=== PATIENT | female | born 1955 | race Caucasian/White ===

== ENCOUNTER → 2016-10-31 | Outpatient (CLI) | payer OTHER ==
--- NOTE | 2016-11-01 13:34 | WWHP ---
DATE OF SERVICE: 10/31/2016 CHIEF COMPLAINT: The patient is here for her routine gynecologic exam. HPI: This is a 61-year-old G1, P1 with an LMP of approximately 2001. She previously saw Dr. Melvin for her gynecologic care. It has been about 2-1/2 years since her last pelvic exam. It has been a little more than one year since her last mammogram. She is without gynecologic complaints and denies any postmenopausal bleeding. PAST MEDICAL HISTORY: Chronic hypertension, hypothyroidism and episodes of vertigo. MEDICATIONS: 1. Lotrel 5/20 mg daily. 2. Thyroid medication 0.05 mg 1/2 tablet daily. 3. Toprol XL 12.5 mg daily. 4. Vitamin E supplement one daily. ALLERGIES: SULFA, which caused a rash. PAST SURGICAL HISTORY: Laparoscopy with laparotomy and right salpingo- oophorectomy, left ovarian cystectomy, appendectomy and lysis of adhesions done in 1988, multiple breast surgeries including a biopsy and cyst aspiration years ago and these were benign, knee surgery in 2005, colonoscopy in 2014 and this was her third one. PAST OB HISTORY: One vaginal delivery. PAST [employer] HISTORY: She does have a history of endometriosis in the past. She has no history of STDs. SOCIAL HISTORY: She denies tobacco, alcohol and drug use. 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 FAMILY HISTORY: Sister had lung and ovarian cancer and they were uncertain of which was the primary. This sister also had Crohn's disease and at age 42. She had a different sister who is her twin who had skin cancer and brother had amyloidosis. REVIEW OF SYSTEMS: She has lost about 30 pounds over the last 2 to 3 years and this has been done through [employer]. She denies respiratory, cardiac or GI problems. PHYSICAL EXAM: Blood pressure is 136/78. Height 5 feet 5 inches. Weight 142 pounds. Temperature 97.6. Pulse is 71. This is a well-developed, well-nourished white female who is alert and oriented x3 in no acute distress. HEENT is within normal limits. NECK: Supple without mass or thyromegaly. CHEST AND LUNGS: Clear to auscultation. HEART: Regular rate and rhythm. Breasts are without mass or discharge. Axillary exam is negative for adenopathy. BACK: Negative for CVA tenderness. ABDOMEN: Soft, nontender without palpable masses. PELVIC EXAM: External genitalia reveals mild to moderate atrophy without lesions. Cervix and vagina reveals mild to moderate atrophy without lesions. There is no evidence of prolapse. The uterus is mid position, nongravid size and nontender. There are no palpable adnexal masses or tenderness. Rectovaginal exam is negative for mass or tenderness and is negative for occult blood. EXTREMITIES: Nontender. IMPRESSION: 1. A 61-year-old menopausal female with normal gynecologic exam. 2. History of right salpingo-oophorectomy for benign reasons. PLAN: 1. Pap smear was performed. 2. Self-breast examination was discussed. 3. Mammogram is due, but the patient would like to do this at [facility] and order slip was given to the patient for this. 4. Osteoporosis prevention was discussed. She states she had a normal bone density test about in 2010. We will plan on repeating this next year. 5. She will return in one year. JENNIFER
== END | disposition home or self-care (01) ==
LOC: WWCWWP 15:09
PROVIDERS: ATTEND Obstetrics & Gynecology
DX: Z01.419 Encounter for gynecological examination (general) (routine) without abnormal findings (principal)

== ENCOUNTER → 2020-01-15 | Outpatient (CLI) | payer MEDICARE ==
[2020-01-15 11:08] VITALS: BP 144/80; PULSE 57; RESP 18; TEMP 98.1
--- NOTE | 2020-01-15 11:42 | P.GSHP ---
History of Present Illness H&P Date: 01/15/20 Chief Complaint: Fibrocystic breast changes Alize is a 64-year-old white female who presents for breast evaluation seen in consultation from Dr. Andrew. She had a bilateral mammogram performed on 220 820. No mammographic evidence for malignancy was noted. Annual bilateral breast mammogram was recommended. Recently on physician examination question of some fullness of the left breast and the patient had undergone a disc 620 a left breast diagnostic mammogram. Again this did not show any specific lesions of concern and an ultrasound was performed. The ultrasound was felt to be probably benign BIRADS 3. Question of some minimal shadowing at the 12 o'clock position 5 cm from the nipple was noted. Corresponding mammographic abnormality was not noted. Clinical management of any palpable abnormality would be recommended and biopsy recommended if something seen there clinically. Consideration of MRI of the breast was also recommended. Alize states she has dense breasts but does not show any specific lumps masses or nodules in her breasts. She is not complaining of any nipple discharge or skin changes. She has had a right breast open biopsy proximally 15 years ago which was benign. She is had needle biopsy as well by radiology which was also on the right breast and benign. She is had a cyst aspirated from right breast in the past. Patient has had 20 pound weight loss in past several years. Caffeine: diet coke several 16 oz bottles/day Nicotine: Negative Theophylline: Negative Family history: sister: from lung and ovarian cancer at 40 brother: at 50 from amyloidosis identical twin sister: T cell lymphoma of the skin Hormonal History: menarche: 10 , breast fed: yes, age at first :30 menopause: 54, right tube and ovary removed secondary to endometriosis BCP: 2 years; took danocrine hormones: danocrine Surgical history: 1. Right tube and ovary removed 2. Right knee surgery 3. Right breast biopsy Medical history: hypothyroid high cholesterol HTN Osteoporosis Social History: Imaging: Negative Alcohol: Negative Drugs: Negative - Constitutional Comment: history of vertigo Constitutional: Denies chills, Denies fever - EENT Eyes: denies blurred vision, denies pain Ears: deny: decreased hearing, tinnitus Ears, nose, mouth and throat: Denies headache, Denies sore throat - Breasts Breasts: bilateral: as per HPI - Cardiovascular Cardiovascular: Denies chest pain, Denies shortness of breath - Respiratory Respiratory: Denies cough, Denies 7 - Gastrointestinal Gastrointestinal: Denies abdominal pain, Denies diarrhea, Denies nausea, Denies vomiting - Genitourinary (Female) Genitourinary: Denies dysuria, Denies hematuria - Menstruation Menstruation: Reports postmenopausal - Musculoskeletal Musculoskeletal: Denies myalgias - Integumentary Integumentary: Denies pruritus, Denies rash - Neurological Neurological: Denies numbness, Denies weakness - Psychiatric Psychiatric: Denies anxiety, Denies depression - Endocrine Comment: Hypothyroid - Hematologic/Lymphatic Comment: none - Allergic/Immunologic Allergic/Immunologic: Reports as per HPI Past Medical History History of Any Multi-Drug Resistant Organisms: None Reported Smoking Status: Never smoker Medications and Allergies Home Medications Medication Instructions Recorded Confirmed Type Ascorbic Acid [Vitamin C] 500 mg PO DAILY 01/15/20 01/15/20 History Calcium Carbonate/Vitamin D3 1 each PO DAILY 01/15/20 01/15/20 History [Calcium 250-D Tablet] Levothyroxine Sodium [Synthroid] 25 mcg PO DAILY 01/15/20 01/15/20 History Metoprolol Succinate (ER) [Toprol 25 mg PO HS 01/15/20 01/15/20 History Xl] Pravastatin Sodium [Pravachol] 20 mg PO HS 01/15/20 01/15/20 History amLODIPine BESYLATE/BENAZEPRIL 1 cap PO DAILY 01/15/20 01/15/20 History [Lotrel 5-20 MG] Allergies Allergy/AdvReac Type Severity Reaction Status Date / Time Sulfa (Sulfonamide AdvReac Rash/Hives Unverified 01/15/20 11:02 Antibiotics) Surgical - Exam Vital Signs Temp Pulse Resp BP Pulse Ox 98.1 F 57 L 18 144/80 99 01/15/20 11:05 01/15/20 11:05 01/15/20 11:05 01/15/20 11:05 01/15/20 11:05 BMI 24.1 - General well developed, well nourished, no distress - Eyes normal ocular movement - ENT no hearing loss, no congestion - Neck no masses, trachea midline - Respiratory normal respiratory effort, clear to auscultation - Cardiovascular Rhythm: regular Heart Sounds: normal: S1, S2 - Abdomen Abdomen: soft, non tender, no guarding, no rigid, no rebound - Integumentary normal turgor - Neurologic no disoriented, no combative - Musculoskeletal normal gait, normal posture - Psychiatric oriented to time, oriented to person, oriented to place, speech is normal, memory intact Breast exam: BRA: 34C inspection: bilateral grade 2/3 ptosis palpation: right breast: Fibrocystic changes, multiple positional exam no discrete dominant masses or nodules of concern Right axilla: No adenopathy of concern Left breast: Fibrocystic changes, multiple positional exam no discrete dominant masses or nodules of concern, left breast is larger than the right breast patient has had recent 20 pound weight loss and has noted changes in the breast Left axilla: No adenopathy of concern Results Mammogram and ultrasound results reviewed Assessment and Plan Assessment: Impression: 1. Asymmetry of the breast 2. Fibrocystic breast changes 3. Questionable fullness in the left breast which is most likely fibrocystic change and more noticeable secondary to the increased size of her left breast over the right breast 4. hypothyroidism 5. Hypertension Plan: 1. MRI of both breasts 2. We will discuss the role of caffeine in fibrocystic breast changes and she is going to consider by step modification to decrease this 3. Follow-up after MRI of both breasts Cc: Dr. Guido encounter 30 minutes, > 50% of time in planning and counselling
== END | disposition home or self-care (01) ==
LOC: WWCWWP 10:46
PROVIDERS: ATTEND Surgery
DX: Z53.9 Procedure and treatment not carried out, unspecified reason (principal)

== ENCOUNTER → 2020-02-07 | Outpatient (CLI) | payer MEDICARE ==
--- NOTE | 2020-02-10 07:59 | BMR ---
EXAMINATION TYPE: MR breast BILAT wo/w con DATE OF EXAM: 02/07/2020 COMPARISON: Outside Bilateral breast mammogram May 31, 2019 BI-RADS 2. Diagnostic outside left br east mammogram November 27, 2019 BI-RADS 2. Diagnostic completed left breast outside ultrasound November BI-RADS 3. HISTORY: Left side abnormality at 12 o'clock, abnormal ultrasound. Palpable abnormality left breast. CONTRAST: Multiplanar, multisequence images of the breasts were acquired utilizing 6.5 mL intravenous Gadavist gadolinium contrast. TECHNIQUE: A series of fat and water weighted images in the long and short axis views of both breasts are obtained in conjunction with dynamic contrast MRI with subtraction technique. Three-dimensional and additional postprocessing imaging is created on independent workstation and reviewed during [facility] interpretation of this study. FINDINGS: Heterogeneously dense fibroglandular tissue throughout both breasts is redemonstrated. T2 a nd STIR weighted images show lobulated thin-walled 8 mm cyst in the lower inner quadrant anterior to middle depth right breast image 15 series 301. There are some prominent but felt benign-appearing rig ht axillary lymph nodes. There are asymmetrically slightly larger left axillary lymph node. No defini tive greater than 1 cm adenopathy on short axis is identified . Postcontrast imaging shows minimal ba ckground enhancement. Delayed dynamic postcontrast imaging shows no suspicious enhancing intramammary adenopathy. With regards to the right breast. No suspicious skin thickening is seen. No pathologic enhancement or enhancing mass is noted. The chest wall is intact. With regards to the left breast. No suspicious enhancement is identified. No abnormal skin thickening . The chest wall is intact. No concerning mass with particular attention to the 12:00 region an area of ultrasound concern. IMPRESSION: No MRI evidence for invasive malignancy in either breast. BI-RADS 2 benign findings right breast BI-RADS 2 benign findings left breast Recommendation: Patient due for bilateral breast mammogram May 2020 to be back on annual schedul e.
== END | disposition home or self-care (01) ==
LOC: RADMRIMAIN 10:09
PROVIDERS: ATTEND Surgery
DX: R92.8 Other abnormal and inconclusive findings on diagnostic imaging of breast (principal)
CPT/HCPCS: C8937; C8908; A9585; 77049

== ENCOUNTER → 2021-12-06 | Outpatient (CLI) | payer MEDICARE | END | disposition home or self-care (01) | LOC: LABPAT 08:36 | PROVIDERS: ATTEND Orthopaedic Surgery | DX: Z01.812 Encounter for preprocedural laboratory examination (principal); Z22.322 Carrier or suspected carrier of Methicillin resistant Staphylococcus aureus; M16.11 Unilateral primary osteoarthritis, right hip | CPT/HCPCS: 87070 ==

== ENCOUNTER 2024-04-04 11:29 | Day surgery (SDC) | payer MEDICARE ==
[2024-04-01 15:39] VITALS: BMI 23.6
[~2024-04-04 11:29] MED LIST: LIDOCAINE 1% (10MG/ML) FOR IV START INTRADERMA PRN
[2024-04-04] MEDS: IV FLUID CONTINUATION 1,000 ML IV ONE (13:24)
[2024-04-04 13:26] VITALS: RESP 16; TEMP 97.1
[2024-04-04] MEDS: LACTATED RINGERS 1,000 ML IV SCH (13:28)
[2024-04-04] MEDS ORDERED: LIDOCAINE 1% INJ 10MG/ML (20 ML MDV) ONE (14:34)
[2024-04-04] MEDS ORDERED: PROPOFOL 10 MG/ML 20 ML VIAL IV ONE (14:34)
--- NOTE | 2024-04-04 14:55 | P.PCN ---
Date of Procedure: 04/04/24 Procedure(s) Performed: BRIEF HISTORY: Patient is a 68-year-old pleasant white female scheduled for an elective colonoscopy as a part of evaluation of change in bowel habits for the last 6 months duration. PROCEDURE PERFORMED: Colonoscopy. PREOPERATIVE DIAGNOSIS: Change in bowel habits. IV sedation per Anesthesia. PROCEDURE: After informed consent was obtained, the patient, was brought into the endoscopy unit. IV sedation was administered by Anesthesia under continuous monitoring. Digital rectal examination was normal. Initially the Olympus CF-160 flexible video colonoscope was then inserted in the rectum, gradually advanced into the cecum without any difficulty. Careful examination was performed as the scope was gradually being withdrawn. Ileocecal valve and the appendiceal orifice were visualized and appeared normal. Prep was excellent. Mucosa of the cecum, ascending colon, transverse colon, descending colon, sigmoid colon, and rectum appeared normal. Moderate sigmoid diverticulosis. Retroflexion was performed in the rectum and no lesions were seen. The patient tolerated the procedure well. IMPRESSION: Normal-appearing colon from rectum to cecum with no evidence of colorectal neoplasia. Moderate sigmoid diverticulosis. RECOMMENDATIONS: Findings of this examination were discussed with the patient as well as her family. She was advised to be on a high-fiber diet and take fiber supplements on a regular basis. Recommended repeat screening colonoscopy in 10 years..
[2024-04-04 15:13] VITALS: BP 118/73; PULSE 76
== END 2024-04-04 15:48 | disposition home or self-care (01) ==
LOC: ORWHC2ENDO 11:29
PROVIDERS: ATTEND Internal Medicine Gastroenterology
DX: K57.30 Diverticulosis of large intestine without perforation or abscess without bleeding (principal); I10 Essential (primary) hypertension; E78.5 Hyperlipidemia, unspecified; E07.9 Disorder of thyroid, unspecified; M19.90 Unspecified osteoarthritis, unspecified site; Z88.2 Allergy status to sulfonamides; Z79.890 Hormone replacement therapy; Z79.1 Long term (current) use of non-steroidal anti-inflammatories (NSAID); Z79.899 Other long term (current) drug therapy
CPT/HCPCS: 45378; J2003; J2704

== ENCOUNTER → 2024-08-19 | Outpatient (CLI) | payer MEDICARE ==
--- NOTE | 2024-08-19 08:44 | BD ---
EXAMINATION TYPE: Axial Bone Density DATE OF EXAM: 08/19/2024 CLINICAL HISTORY: 69 years old Female. ICD-10 CODE: R92.30 DENSE BREAST , Additional History: Height: 64.2 Weight: 142 FRAX RISK QUESTIONS: History of Fracture in Adulthood: yes Secondary Osteoporosis: yes 3. Menopause before 45: yes, at 42 5. Chronic liver disease: cystic liver, enzymes fluxuate RISK FACTORS HISTORY OF: osteoporosis, hx of rt patellar fx with removal, Surgery to right hip, total rt hip replacement 3 yrs ago MEDICATIONS: bp meds, vit d and calcium, Thyroid Medications: yes, synthroid product for about 8 yrs Osteoporosis Medications: yes, fosamax x4 yrs, EXAM MEASUREMENTS: Bone mineral densitometry was performed using the [employer]ke[employer] System. Bone mineral density as measured about the Lumbar spine is: ----- L1-L4(G/cm2): 0.859 T Score Values are as follows: ----- L1: -3.3 ----- L2: -3.9 ----- L3: -2.3 ----- L4: -1.8 ----- L1-L4: -2.7 Z Score Values are as follows: ----- L1: -1.6 ----- L2: -2.2 ----- L3: -0.6 ----- L4: -0.1 ----- L1-L4: -1.0 Bone mineral density is the first study for her at [facility]. Bone mineral density about the L hip (g/cm2): 0.786 T Score values are as follows: -----L Neck: -1.8 -----L Total: -1.8 Z Score values are as follows: -----L Neck: -0.1 -----L Total: -0.2 Bone mineral density is the first DEXXA at [facility]. FRAX%s: The graph provided illustrates a 17.8% chance for a major osteoporotic fx and a 3.3% chance f or the hips probability for fx in 10 years time. IMPRESSION: Osteoporosis (T Score less than -2.5). There is increased fracture risk and therapy is usually indicated based on age. Re-Screen 1-2 years. NOTE: T-SCORE=SD OF THE YOUNG ADULT MEAN. [facility], , 08/19/2024 8:42 AM
--- NOTE | 2024-08-19 09:25 | USB ---
Reason for Exam: Clinical finding. Patient History: Menarche at age 11. First Full-Term at age 28. Late child-bearing (after 28). Right ovary removed at age 30. Postmenopausal. 1999, US biopsy breast VAD LT - 2 on the Left side. 1999, Excisional Biopsy on the Right side. Risk Values: Adele 5 year model risk: 3.6%. NCI Lifetime model risk: 9.8%. Technique: Method: Whole Breast Handheld. Findings: The whole breast of both breasts, the axilla of both breasts and the retroareolar of both breasts were scanned. A complete US of all four quadrants of the breast and retro-areolar and bilateral axillary region are reviewed. No solid or cystic masses are identified in the left breast. Right breast shows a 9 x 4 x 6 mm simple appearing thin-walled cyst 7:00 position 5 cm distance from nipple. No suspicious axillary adenopathy is identified. Overall Assessment: Benign, BI-RAD 2 Management: Screening Mammogram of both breasts in 1 year. Manage patient bilateral diffuse breast pain clinically. A clinical breast exam by your physician is recommended on an annual basis and results should be correlated with mammographic findings. This exam should not preclude additional follow-up of suspicious palpable abnormalities. Results were given to the patient verbally at the time of exam. [facility], , 08/19/2024 9:18 AM. Electronically signed and approved by: Ronald Solano M.D.
--- NOTE | 2024-08-19 10:08 | US ---
EXAMINATION TYPE: US abdomen complete DATE OF EXAM: 08/19/2024 COMPARISON: NONE CLINICAL INDICATION: Female, 69 years old with history of K76.89 CYST OF LIVER; TECHNIQUE: Grayscale and color Doppler imaging of the abdomen was performed. FINDINGS: EXAM MEASUREMENTS: Liver Length: 12.9 cm Gallbladder Wall: 0.2 cm CBD: 0.4 cm, color Doppler imaging was utilized to isolate the common bile duct for measurement. Spleen: 9.7 cm Right Kidney: 8.4 x 3.9 x 4.6 cm Left Kidney: 8.5 x 3.6 x 4.9 cm Pancreas: Only portions of the pancreatic head are well seen. Remaining body and tail are suboptimal ly visualized due to bowel gas. Liver: wnl, unable to visualize any cyst or other discrete lesion. Gallbladder: wnl Evidence for sonographic Fajardo's sign: no CBD: wnl Spleen: wnl Right Kidney: wnl, No hydronephrosis, calculi or masses seen Left Kidney: wnl, No hydronephrosis, calculi or masses seen Upper IVC: wnl Abd Aorta: wnl IMPRESSION: 1. Unable to identify discrete hepatic cyst or other liver lesion on this exam. If persistent concern , follow-up CT or MRI. 2. No gallstones or biliary ductal dilatation. [facility], Workstation: [id number], 08/19/2024 10:06 AM
--- NOTE | 2024-08-19 13:51 | MM ---
Reason for Exam: Screening (asymptomatic). Last screening mammogram was performed 12 month(s) ago. Patient History: Menarche at age 11. First Full-Term at age 28. Late child-bearing (after 28). Right ovary removed at age 30. Postmenopausal. 1999, US biopsy breast VAD LT - 2 on the Left side. 1999, Excisional Biopsy on the Right side. Risk Values: Adele 5 year model risk: 3.6%. NCI Lifetime model risk: 9.8%. Prior Study Comparison: 02/07/2020 Bilateral Diagnostic Breast MRI, [facility]. 07/04/2021 Bilateral Screening Mammogram, [facility]. 07/17/2022 Bilateral Screening Mammogram, [facility]. 07/26/2023 Bilateral Screening Mammogram, [facility]. Tissue Density: The breasts are heterogeneously dense, which may obscure small masses. Findings: Analyzed By CAD. There is no suspicious new group of microcalcifications or new suspicious mass in either breast. Overall Assessment: Negative, BI-RAD 1 Management: Screening Mammogram of both breasts in 1 year. Some advise annual bilateral breast ultrasound surveillance in patients with background dense tissue. Patient should continue monthly self-breast exams. A clinical breast exam by your physician is recommended on an annual basis. This exam should not preclude additional follow-up of suspicious palpable abnormalities. Note on Adele scores and lifetime risk: 1. A Adele score greater than 3% is considered moderate risk. If this is the case, consider specialist referral to assess eligibility for a risk reducing agent. 2. If overall lifetime risk for the development of breast cancer is 20% or higher, the patient may qualify for future screening with alternating mammogram and breast MRI. [facility], , 08/19/2024 1:48 PM. Electronically signed and approved by: Ronald Solano M.D.
--- NOTE | 2024-08-19 20:43 | US ---
EXAMINATION TYPE: US transvaginal DATE OF EXAM: 08/19/2024 COMPARISON: NONE CLINICAL INDICATION: Female, 69 years old with history of N85.00 ENDOMETRIAL HYPERPLASIA; no symptoms , right oophorectomy and right salpingectomy TECHNIQUE: TV. Transvaginal sonographic images FINDINGS: Date of LMP: 25 years ago EXAM MEASUREMENTS: Uterus: 3.8 x 2.3 x 2.0 cm Endometrial Stripe: 0.5 cm Right Ovary: surgically removed Left Ovary: not seen 1. Uterus: retroflexed and anteverted. Otherwise wnl 2. Endometrium: Upper limits of normal in thickness. 3. Right Ovary: Surgically absent 4. Left Ovary: not seen due to atrophy and bowel gas 5. Bilateral Adnexa: wnl 6. Posterior cul-de-sac: wnl IMPRESSION: 1. Retroflexed an anteverted uterus. 2. Endometrial stripe thickness of 5 mm at the upper limits of normal. 3. Right ovary surgically absent. Unable to visualize the left ovary. [facility], Workstation: [email or web address], 08/19/2024 8:41 PM
== END | disposition home or self-care (01) ==
LOC: RADUSWWP 07:27
PROVIDERS: ATTEND Internal Medicine Geriatric Medicine
DX: Z12.31 Encounter for screening mammogram for malignant neoplasm of breast (principal); R92.333 Mammographic heterogeneous density, bilateral breasts; K76.89 Other specified diseases of liver; N85.00 Endometrial hyperplasia, unspecified; M89.9 Disorder of bone, unspecified; Z78.0 Asymptomatic menopausal state; M81.0 Age-related osteoporosis without current pathological fracture; M85.89 Other specified disorders of bone density and structure, multiple sites; N60.02 Solitary cyst of left breast; N85.4 Malposition of uterus
CPT/HCPCS: 76700; 76830; 77063; 77067; 77080

== ENCOUNTER → 2024-08-19 | Outpatient (CLI) | payer MEDICARE | END | disposition home or self-care (01) | LOC: RADMAMWWP 07:24 | PROVIDERS: ATTEND Internal Medicine Geriatric Medicine | DX: Z53.9 Procedure and treatment not carried out, unspecified reason (principal) ==